=== PATIENT | female | born 1955 | race Caucasian/White ===

== ENCOUNTER 2024-04-23 09:20 | Outpatient (REF) | payer BC, SELFPAY ==
--- NOTE | ~2024-04-23 | XR_ITS ---
EXAMINATION: XR SHOULDER, RIGHT CLINICAL INFORMATION: Right shoulder pain COMPARISON: None available. TECHNIQUE: Two views of the right shoulder. FINDINGS: Mild glenohumeral osteoarthritis with degenerative spurring of the greater tuberosity. Mild acromioclavicular osteoarthritis. No fracture or malalignment. XR/XR shoulder RT min 2V IMPRESSION: Mild glenohumeral and acromioclavicular osteoarthritis.
== END 2024-04-23 09:21 | disposition home or self-care (01) ==
LOC: HO.HOSX 09:20
PROVIDERS: Visit Provider Orthopaedic Surgery
DX: M25.511 Pain in right shoulder (principal)
CPT/HCPCS: 73030

== ENCOUNTER 2024-04-23 14:00 | Outpatient (AMB) | payer BC, SELFPAY ==
--- NOTE | 2024-04-23 14:03 | A.OFFVIS_ITS ---
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 The patient states that she injured her right shoulder approximately 4 months ago while getting out of bed. The patient states that she lost her balance and braced herself with her right arm. Since that time she has had weakness when trying to lift her right hand above shoulder height. She has done physical therapy exercises which aggravated her pain. She has also tried Tylenol and anti-inflammatory medicines which gave her minimal relief. The patient has failed the last 6 weeks of conservative treatment. Allergies No Known Allergies Allergy (Verified 04/23/24 14:18) Medication List - Last Reconciled 04/23/24 by Carlyle Shore MD lifitegrast 5% (Xiidra) 1 drp ophthalmic (eye) BID methylprednisolone (Medrol (Jake)) PO PER PKG DIR Physical Exam Const Other: Well-nourished well-developed very friendly female awake alert and oriented x3 in no acute distress Extrem Other: Bilateral upper extremity examination shows good capillary refill, no skin lesions noted, normal sensation light touch Right shoulder examination shows decreased range of motion when compared to her left shoulder, 4/5 strength with supraspinatus testing, positive impingement signs, tenderness over her acromioclavicular joint, no instability Results Reviewed Results Reviewed: X-rays of the patient's right shoulder show severe acromioclavicular joint narrowing, a type 2 acromion, no acute bony abnormalities Assessment & Plan Assessment & Plan (1) Right shoulder pain: Code(s): M25.511 - Pain in right shoulder Category: Medical Plan Ms. Orta presents with progressively worsening right shoulder pain and weakness most likely due to a full-thickness rotator cuff tear. Thus, I will send the patient for an MRI of her right shoulder for further evaluation. I will see her back once the MRI is completed to discuss the findings and treatment options. Feel free to call me at any time should questions regarding her orthopedic management arise. Thank you very much for asking me to see this very friendly patient. I spent 21 minutes in reviewing the patient's records and imaging studies, seeing the patient and documenting in the medical record. Orders: Orders XR shoulder RT min 2V 04/23/24 M25.511 - Pain in right shoulder MR shoulder RT wo con 04/23/24 M25.511 - Pain in right shoulder Medications: New methylprednisolone (Medrol (Jake)) PO PER PKG DIR 21 ea 0RF Coding Level of Care Code New Pt Level 3 (11796) Diagnoses Right shoulder pain M25.511
== END 2024-04-23 14:29 | disposition home or self-care (01) ==
PROVIDERS: PCP Nurse Practitioner; Visit Provider Orthopaedic Surgery
DX: M25.511 Pain in right shoulder (principal)
CPT/HCPCS: 99203

== ENCOUNTER 2024-05-23 08:22 | Outpatient (AMB) | payer BC, SELFPAY ==
--- NOTE | 2024-05-23 08:26 | MHC.OFFVIS ---
Intake Visit Reasons: OV-right shoulder MRI review Intake Note: Mackenzie is a 68 year old right hand dominant female who presents with complaints of right shoulder pain and weakness. The patient states that she injured her right shoulder approximately 6 months ago while getting out of bed. The patient states that she lost her balance and braced herself with her right arm. Since that time she has had weakness when trying to lift her right hand above shoulder height. She has done physical therapy exercises which aggravated her pain. She has also tried Tylenol and anti-inflammatory medicines which gave her minimal relief. The patient has failed the last 6 weeks of conservative treatment. Allergies No Known Allergies Allergy (Verified 05/23/24 08:27) Medication List - Last Reconciled 05/23/24 by Carlyle Shore MD lifitegrast 5% (Xiidra) 1 drp ophthalmic (eye) BID Physical Exam Const Other: Well-nourished well-developed very friendly female awake alert and oriented x3 in no acute distress Extrem Other: Bilateral upper extremity examination shows good capillary refill, no skin lesions noted, normal sensation light touch Right shoulder examination shows decreased active range of motion when compared to her left shoulder, 3/5 strength with supraspinatus testing, positive impingement signs, tenderness over her acromioclavicular joint, no instability Results Reviewed Results Reviewed: MRI of the patient's right shoulder show severe acromioclavicular joint narrowing, a type 2 acromion, a full-thickness supraspinatus tendon tear Assessment & Plan Assessment & Plan (1) Rotator cuff insufficiency of right shoulder: Code(s): M25.311 - Other instability, right shoulder Category: Medical Plan Ms. Orta presents with progressively worsening right shoulder pain and weakness due to impingement syndrome, acromioclavicular joint arthritis and a full-thickness rotator cuff tear. I had a lengthy discussion with the patient regarding the treatment options. At this point she has failed continued non operative treatments. The risks and benefits of right shoulder surgery were discussed at length with the patient. The patient wishes to proceed with surgery. Surgery will involve right shoulder diagnostic arthroscopy with distal clavicle excision, acromioplasty and rotator cuff repair. The patient will be scheduled for next available date. She will follow-up as instructed. Feel free to call me at any time should questions regarding her orthopedic management arise. I spent 21 minutes in reviewing the patient's records and imaging studies, seeing the patient and documenting in the medical record. Coding Level of Care Code Est Pt Level 3 (64663) Diagnoses Rotator cuff insufficiency of right shoulder M25.311
== END 2024-05-23 08:41 | disposition home or self-care (01) ==
PROVIDERS: PCP Nurse Practitioner; Visit Provider Orthopaedic Surgery
DX: M25.311 Other instability, right shoulder (principal)
CPT/HCPCS: 99214

== ENCOUNTER → 2024-05-23 08:22 | Outpatient (BNVA) | payer BC, SELFPAY | PROVIDERS: PCP Nurse Practitioner; Visit Provider Orthopaedic Surgery ==

== ENCOUNTER 2024-06-24 09:53 | Day surgery (SDC) | payer BC, SELFPAY ==
[2024-06-10 15:10] VITALS: BMI 36.0
[2024-06-24] VITALS (9 sets, daily range): BP systolic 99–132; BP diastolic 38–51; PULSE 58–79; RESP 12–16; TEMP 36.1; O2SAT 90–100; BMI 36.0
[2024-06-24] MEDS: Lactated Ringers 1,000 ML 80 ML IVCONT (10:28)
--- NOTE | 2024-06-24 11:40 | HO.ANESPROP2 ---
HPI - Anesthesia Eval Consult details Narrative: right shoulder repair PMFSH Active Problems Active Problems: All Active Problems Rotator cuff insufficiency of right shoulder (Acute) Right shoulder pain (Acute) Past Medical History Medical History Dry eye syndrome Arthritis Personal history of COVID-19 Seasonal allergies Family History Family History Father Awareness under anesthesia Family history of problems with anesthesia: No Surgical History Surgical History Hx of wisdom tooth extraction Hx of colonoscopy History of Problems with Anesthesia: No Social History Social History Household Members: Spouse Housing: House Are you a primary career technical education teacher to a significant other at home: No Do you presently have visiting nurse or other home services: No Patient Tobacco Use Status: Former Tobacco user Tobacco use type: Cigarette Smoked in Last 30 Days: No Use of substances other than those prescribed or required for medical reasons: No Have you been hit, kicked, punched, or otherwise hurt by someone within the past year? If so, by whom?: No Are you DNR?: No Advance Directives: No Advance Directives Information Provided: Yes Advance Directives on File: No Recently lost weight without trying: No Nutrition Risks: No Nutritional Risk Poor oral hygiene: No Meds Allergies Allergy/AdvReac Type Severity Reaction Status Date / Time No Known Allergies Allergy Verified 06/24/24 10:03 Active Medications: Current Medications Lactated Ringer's (Lr) 1,000 mls @ 80 mls/hr IVCONT .[id number] BUD Last Admin: 06/24/24 10:28 Dose: 80 mls/hr Home Medications ?Medication ?Instructions ?Recorded ?Confirmed ?Last Taken ?Type lifitegrast 5 % eye drops in a 1 drp ophthalmic (eye) BEDTIME 04/23/24 06/10/24 Unknown History dropperette (Xiidra) cetirizine 10 mg chewable tablet 10 mg PO BEDTIME 06/10/24 06/10/24 Unknown History (Zyrtec) rpuhdgyx-kadmmm-enxlxslp acid 06/10/24 06/10/24 Unknown History fluticasone propionate 50 2 spray intranasal DAILY 06/10/24 06/10/24 Unknown History mcg/actuation nasal spray,suspension (Flonase Allergy Relief) Exam Height,Weight and Vital Signs: Height 5 ft 2 in Weight 89.358 kg Last Vital Signs Temp 97.0 F 06/24/24 10:26 Pulse 59 06/24/24 10:26 Resp 16 06/24/24 10:26 BP 107/38 L 06/24/24 10:26 Pulse Ox 100 06/24/24 10:26 O2 Del Method Room Air 06/24/24 10:26 Airway Mallampati Class: III TM Dist: <=3cm Neck ROM: Full Heart: rrr Lungs: cta Assessment and Plan Assessment Anesthesia Assessment: Anesthesia Plan Discussed Final Anesthetic Review Family History of Problems with Anesthesia: No History of Problems with Anesthesia: No NPO: Yes ASA Class: II Final Preanesthetic Review: No Changes in Pt Med Stat, Meds/Allgs Chart Reviewed, Consent Obtained/Reviewed and Anes Risks/Benef Reviewed Patient Risk: Low Procedure Risk: Intermediate Anesthetic Plan Anesthetic Plan: GA and Regional Block Disposition: Standard PACU
--- NOTE | 2024-06-24 14:02 | P.BOP_ITS ---
Brief Operative Note Date of Service: 06/24/24 Pre-op diagnosis: Right shoulder impingement syndrome, right shoulder acromioclavicular joint arthritis, right shoulder rotator cuff tear Post-op diagnosis: same Procedure: Right shoulder arthroscopic distal clavicle excision, right shoulder arthroscopic acromioplasty, right shoulder mini-open rotator cuff repair Implants: Two suture anchors (Lockwood [employer] Nephew Twinfix anchors with #2 Ultrabraid suture) Surgeon: Carlyle Shore MD Anesthesia: GETA and regional Was an Jacquard Loom Carpet Weaver used for this Procedure?: No Estimated blood loss (mL): 10 Pathology: none sent Condition: stable Disposition: PACU
--- NOTE | 2024-06-24 14:03 | P.OP_ITS ---
Operative Note Operative Note Date of Service: 06/24/24 Narrative: After the patient was identified as Mackenzie Orta and her right shoulder was initialed by myself the patient was brought to the holding area where a right shoulder interscalene regional block was performed by the anesthesiologist in routine fashion. The patient was then brought to the operating room where general anesthesia was induced by the anesthesiologist in routine fashion. The patient was given 2 g of IV Ancef preoperatively for infection prophylaxis. Examination under anesthesia of the patient's right shoulder showed full passive range of motion of the patient's right shoulder when compared to the left. The patient was gently positioned in the beach chair position with all bony prominences well padded. The patient's right shoulder region and upper extremity were prepped and draped in sterile fashion. A formal time-out was completed. A #11 scalpel blade was used to make a posterior portal 2 cm inferior and 1 cm medial to the posterolateral corner of the acromion. Blunt trocar technique was used to enter the glenohumeral joint in routine fashion. An anterior portal was made just lateral to the coracoid process after proper positioning was confirmed using a spinal needle. Diagnostic arthroscopy showed minimal degenerative changes of the glenoid and humeral head articular surfaces. There was a full-thickness tear of the supraspinatus tendon. There was no evidence of injury to the biceps tendon or its insertion onto the glenoid. There was no inflammation of the anterior joint capsule. The arthroscope was then placed from the posterior portal into the subacromial space. A lateral p ortal was made 2 fingerbreadths lateral to the anterior lateral corner of the acromion. The ArthroCare Wand was used to ablate soft tissues along the undersurface of the acromion as well as to excise the coracoacromial ligament. There was a sharp spur along the undersurface of the acromion which was removed using the hooded bur. The arthroscope was then placed into the lateral portal and the acromioplasty was completed with the bur in the posterior portal using the posterior aspect of the acromion as a cutting block. The ArthroCare Wand was then brought in through the anterior portal and was used to ablate soft tissues along the acromioclavicular joint and distal clavicle. The posterior and superior ligamentous structures were left intact. A distal clavicle excision of 8 mm was performed using the hooded bur. Any remaining bursal tissue was removed using the arthroscopic shaver. The subacromial space was irrigated and then drained. All arthroscopic instruments were removed. Sterile gloves were changed and the shoulder was once again prepped with Betadine. A #15 scalpel blade was used to extend the lateral portal to the lateral edge of the acromion. The subacromial tissues were dissected using electrocautery down to the superficial deltoid fascia. The trocar split in the anterior raphe of the deltoid was then extended to the lateral edge of the acromion using electr ocautery and curved Briscoe scissors. Any remaining bursal tissue was removed using curved Briscoe scissors. Subacromial and subdeltoid adhesions were bluntly dissected. The undersurface of the acromion was palpated and it was smooth. A #2 Ethibond tag suture was placed into the supraspinatus tendon. The tendon was easily mobilized to its insertion point on the glenoid. The wound was irrigated with copious amounts of normal saline solution. Two suture anchors were placed into the greater tuberosity in routine fashion. The rotator cuff repair was then performed using horizontal mattress sutures under minimal tension with the patient's elbow at their side. Following the repair the shoulder was taken through a full range of motion. The repair was stable. The wound was irrigated with copious amounts of normal saline solution. The superficial and deep deltoid fascia were closed with #1 Vicryl zbmfcv-yz-gtede interrupted suture. The wound was once again irrigated. The subcutaneous tissues were closed with 2-0 Vicryl interrupted suture. The skin was closed with 3-0 Prolene subcuticular suture and Steri-Strips. The anterior and posterior portals were closed with 3-0 nylon interrupted suture. Dry sterile dressing was placed over all incisions. The patient's right upper extremity was placed into a sling. The patient was awoken and extubated in the operating room. The patient was transferred to the recovery room in stable condition.
[2024-06-24] MEDS: cefTRIAXone sodium 1 GM in 0.9 % Sodium Chloride 50 ML IV (14:16)
== END 2024-06-24 15:54 | disposition home or self-care (01) ==
PROVIDERS: PCP Internal Medicine; Visit Provider Orthopaedic Surgery
PROC: (CPT 29805; principal; 2024-06-24 12:00)
DX: M75.101 Unspecified rotator cuff tear or rupture of right shoulder, not specified as traumatic (principal); M75.41 Impingement syndrome of right shoulder; M19.011 Primary osteoarthritis, right shoulder; M25.311 Other instability, right shoulder; Z87.828 Personal history of other (healed) physical injury and trauma; Z87.891 Personal history of nicotine dependence
CPT/HCPCS: 23412; 29824; 29826; C1713; J0171; J0665; J0690; J0696; J1100; J2250; J2371; J2405; J2704; J2795; J3010

== ENCOUNTER → 2024-06-24 09:53 | Outpatient (BNV) | payer BC, SELFPAY | PROVIDERS: PCP Internal Medicine; Visit Provider Orthopaedic Surgery | DX: S46.011A Strain of muscle(s) and tendon(s) of the rotator cuff of right shoulder, initial encounter (principal); M75.41 Impingement syndrome of right shoulder; M19.011 Primary osteoarthritis, right shoulder | CPT/HCPCS: 23412; 29824 ==

== ENCOUNTER 2024-07-04 14:27 | Outpatient (AMB) | payer BC, SELFPAY ==
--- NOTE | 2024-07-04 14:41 | MHC.OFFVIS ---
Intake Visit Reasons: PO RT shoulder 06/24/24 DR Intake Note: Mackenzie is a 68 year old female who presents to the office today for a PO RT shoulder 06/23/24. Pt states she is having some pain but states overall is feeling well. Pt is no longer taking pain medications. Sutures removed in office. She denies any fevers or chills. Allergies No Known Allergies Allergy (Verified 07/04/24 14:41) Medication List - Last Reconciled 07/04/24 by Carlyle Shore MD cetirizine (Zyrtec) 10 mg PO BEDTIME [nwfahcpf-bsblxl-lqnlqjdj acid ] fluticasone propionate 50 mcg/actuation (Flonase Allergy Relief) 2 sprays intranasal DAILY lifitegrast 5% (Xiidra) 1 drp ophthalmic (eye) BEDTIME [facility] Medical History Dry eye syndrome Arthritis Personal history of COVID-19 Seasonal allergies Surgical History Hx of wisdom tooth extraction Hx of colonoscopy Family History Father Awareness under anesthesia Social History Household Members: Spouse Housing: House Are you a primary menagerie caretaker to a significant other at home: No Do you presently have visiting nurse or other home services: No Patient Tobacco Use Status: Former Tobacco user Tobacco use type: Cigarette Physical Exam Extrem Other: Right shoulder examination shows that the surgical incisions are healing well, no erythema, minimal discomfort with gentle passive range of motion Assessment & Plan Assessment & Plan (1) Rotator cuff insufficiency of right shoulder: Code(s): M25.311 - Other instability, right shoulder Category: Medical Plan Ms. Orta is doing very well after undergoing right shoulder rotator cuff repair surgery on June 24 1024. Her sutures were removed and Steri-Strips placed over her incisions. I did give her a prescription to go to formal physical therapy for passive range of motion exercises only. I will hold off on active lifting until she is 8 weeks out from surgery. I will see her back at that time. Feel free to call me at any time should questions regarding her orthopedic management arise. Orders: Orders PT Evaluation and Treatment Today M25.311 - Other instability, right shoulder Coding Level of Care Code Global (88622) Diagnoses Rotator cuff insufficiency of right shoulder M25.311
== END 2024-07-04 15:06 | disposition home or self-care (01) ==
PROVIDERS: PCP Nurse Practitioner; Visit Provider Orthopaedic Surgery
DX: M25.311 Other instability, right shoulder (principal)
CPT/HCPCS: 99024

== ENCOUNTER → 2024-07-04 14:27 | Outpatient (BNVA) | payer BC, SELFPAY | PROVIDERS: PCP Nurse Practitioner; Visit Provider Orthopaedic Surgery ==

== ENCOUNTER 2024-08-15 14:31 | Outpatient (AMB) | payer BC, SELFPAY ==
--- NOTE | 2024-08-15 14:43 | A.OFFVIS_ITS ---
Intake Visit Reasons: Right shoulder pain Intake Note: Mackenzie is a 68 year old female who presents with complaints of mild intermittent discomfort in her right shoulder after undergoing right shoulder rotator cuff repair surgery on 06/24/2024. [facility] [place] She denies any fevers or chills. She is no longer taking narcotics for her discomfort. Allergies No Known Allergies Allergy (Verified 08/15/24 14:44) Medication List - Last Reconciled 08/16/24 by Carlyle Shore MD cetirizine (Zyrtec) 10 mg PO BEDTIME [gchsptnd-xtvdht-wqxlrppk acid ] fluticasone propionate 50 mcg/actuation (Flonase Allergy Relief) 2 sprays intranasal DAILY lifitegrast 5% (Xiidra) 1 drp ophthalmic (eye) BEDTIME [facility] Medical History Dry eye syndrome Arthritis Personal history of COVID-19 Seasonal allergies Surgical History Hx of wisdom tooth extraction Hx of colonoscopy Family History Father Awareness under anesthesia Social History Household Members: Spouse Housing: House Are you a primary hospice care sales consultant to a significant other at home: No Do you presently have visiting nurse or other home services: No Patient Tobacco Use Status: Former Tobacco user Tobacco use type: Cigarette Physical Exam Extrem Other: Right shoulder examination shows that the surgical incisions are well healed, no erythema, almost full passive range of motion when compared to her left shoulder, minimal discomfort with resisted internal and external rotation Assessment & Plan Assessment & Plan (1) Rotator cuff insufficiency of right shoulder: Code(s): M25.311 - Other instability, right shoulder Category: Medical (2) Right shoulder pain: Code(s): M25.511 - Pain in right shoulder Category: Medical Plan Mackenzie continues to do well after undergoing right shoulder rotator cuff repair surgery on 06/24/2024. She will continue going to formal physical therapy for now. She can begin active range motion exercises on August 24. She will contact me prior to her follow-up appointment in 2 months should any questions or concerns arise. Feel free to call me at any time should questions regarding her orthopedic management arise. Orders: Orders PT Evaluation and Treatment 08/15/24 M25.311 - Other instability, right shoulder Coding Level of Care Code Global (10865) Diagnoses Rotator cuff insufficiency of right shoulder M25.311 Right shoulder pain M25.511
== END 2024-08-15 15:12 | disposition home or self-care (01) ==
PROVIDERS: PCP Nurse Practitioner; Visit Provider Orthopaedic Surgery
DX: M25.311 Other instability, right shoulder (principal); M25.511 Pain in right shoulder
CPT/HCPCS: 99024

== ENCOUNTER → 2024-08-15 14:31 | Outpatient (BNVA) | payer BC, SELFPAY | PROVIDERS: PCP Nurse Practitioner; Visit Provider Orthopaedic Surgery ==

== ENCOUNTER 2024-10-17 14:25 | Outpatient (AMB) | payer BC, SELFPAY ==
[2024-10-17 14:40] VITALS: BMI 36.0
--- NOTE | 2024-10-17 14:40 | MHC.OFFVIS ---
Vital Signs 10/17/24 14:40 Height 5 ft 2 in Weight 197 lb BMI 36.0 Intake Visit Reasons: OV - RT shoulder 06/24/24 DR Intake Note: Mackenzie is a 69 year old female who presents with complaints of mild intermittent discomfort in her right shoulder after undergoing right shoulder rotator cuff repair surgery on 06/24/2024. She has completed formal physical therapy. She continues with her home stretching program. She does not take any medicines for her discomfort. Allergies No Known Allergies Allergy (Verified 10/17/24 14:44) Medication List - Last Reconciled 10/17/24 by Carlyle Shore MD cetirizine (Zyrtec) 10 mg PO BEDTIME [jthpikdo-cjvlan-blnidngp acid ] fluticasone propionate 50 mcg/actuation (Flonase Allergy Relief) 2 sprays intranasal DAILY lifitegrast 5% (Xiidra) 1 drp ophthalmic (eye) BEDTIME [facility] Medical History Dry eye syndrome Arthritis Personal history of COVID-19 Seasonal allergies Surgical History Hx of wisdom tooth extraction Hx of colonoscopy Family History Father Awareness under anesthesia Social History Household Members: Spouse Housing: House Are you a primary life care planner to a significant other at home: No Do you presently have visiting nurse or other home services: No Patient Tobacco Use Status: Former Tobacco user Tobacco use type: Cigarette Physical Exam Vital Signs: BMI result Body Mass Index 36.0 Const Other: Well-nourished well-developed very friendly female awake alert and oriented x3 in no acute distress Extrem Other: Bilateral upper extremity examination shows good capillary refill, no skin lesions noted, normal sensation light touch Right shoulder examination shows that the surgical incisions are well healed, no erythema, full range of motion when compared to her left shoulder, 5/5 strength with supraspinatus testing, no instability Assessment & Plan Assessment & Plan (1) Right shoulder pain: Code(s): M25.511 - Pain in right shoulder Category: Medical Plan Ms. Orta continues to do very well after undergoing right shoulder rotator cuff repair surgery on 06/24/2024. She will continue with her fouow-ra-hkwzod exercises to prevent stiffness. The do's and don'ts of lifting were discussed at length with the patient. She will follow up with me on an as-needed basis should any questions or concerns arise. Feel free to call me at any time should questions regarding her orthopedic management arise. I spent 20 minutes in reviewing the patient's records and imaging studies, seeing the patient and documenting in the medical record. Coding Level of Care Code Est Pt Level 3 (57366) Complex EM visit Add On G2211 Diagnoses Right shoulder pain M25.511
== END 2024-10-17 15:02 | disposition home or self-care (01) ==
PROVIDERS: PCP Nurse Practitioner; Visit Provider Orthopaedic Surgery
DX: M25.511 Pain in right shoulder (principal)
CPT/HCPCS: 99213

== ENCOUNTER → 2024-10-17 14:25 | Outpatient (BNVA) | payer BC, SELFPAY | PROVIDERS: PCP Nurse Practitioner; Visit Provider Orthopaedic Surgery ==